=== PATIENT | male | born 1965 | race African-American/Black ===

== ENCOUNTER 2017-02-20 10:54 | Emergency (ER) | payer OTHER ==
[2017-02-20 11:04] VITALS: BP 136/79; PULSE 65; TEMP 97.9; BMI 24.9
[2017-02-20] MEDS ORDERED: IBUPROFEN 600 MG TABLET (FP) PO ONE ×2 (11:46→11:49)
--- NOTE | 2017-02-20 11:50 | PDOC ---
History of Present Illness - General Chief Complaint: Injury Stated Complaint: RT FOOT PAIN, SWOLLEN Time Seen by Provider: 02/20/17 11:15 History Source: Patient Exam Limitations: No Limitations - History of Present Illness Initial Comments: 02/20/17 11:56 My Chief Complaint: rt. first toe pain 02/20/17 11:59 History of Present Illness: Pt. is a 51-year-old male with no significant medical history here today complaining of pain to his first toe that radiates to the first metatarsal after banging it on a step at work yesterday. He reports that area is painful and is wearing a sandal presently. Patient did not take anything for pain. Patient has minimal swelling to his right metacarpal area and also has a bunion formation. He denies any numbness of the right first toe or foot. Occurred: reports: just prior to arrival Severity: Yes: moderate Lower Extremity Pain Location: right: 1st toe, other (1st mcp jt [id number]) Method of Injury: Yes: direct blow Modifying Factors: improves with: None Lower Ext. Injury Location - Specific Injury Location Foot: right foot pain (1st toe, rt. 1st mcp jt ) Extremity Pain Location - Extremity Pain Location Extremity Pain Locations: right: 1st toe, other (1st mcp jt ) Past History - Past Medical History Allergies/Adverse Reactions: Allergies Allergy/AdvReac Type Severity Reaction Status Date / Time No Known Allergies Allergy Verified 02/20/17 11:03 Home Medications: Ambulatory Orders NK [No Known Home Medication] 02/20/17 Other medical history: denies - Psycho/Social/Smoking Cessation Hx Suicidal Ideation: No Smoking Status: No Smoking History: Never smoked Number of Cigarettes Smoked Daily: 0 Information on smoking cessation initiated: No Hx Alcohol Use: No Drug/Substance Use Hx: No Substance Use Type: None Review of Systems - Review of Systems Able to Perform ROS?: Yes Constitutional: No: Symptoms Reported HEENTM: No: Symptoms Reported Respiratory: No: Symptoms reported Cardiac (ROS): No: Symptoms Reported ABD/GI: No: Symptoms Reported Musculoskeletal: Yes: Joint Pain (rt. 1st toe, rt. 1st mcp jt ). No: Joint Swelling Integumentary: No: Symptoms Reported Neurological: No: Symptoms reported *Physical Exam - Vital Signs Last Vital Signs Temp Pulse Resp BP Pulse Ox 97.9 F 65 18 136/79 65 L 02/20/17 11:01 02/20/17 11:01 02/20/17 11:01 02/20/17 11:01 02/20/17 11:01 - Physical Exam General Appearance: Yes: Appropriately Dressed Vascular Pulses: Dorsalis-Pedis (R): 4+ Extremity: positive: Normal Capillary Refill, Normal Inspection, Normal Range of Motion (rt. 1st toe and 1 st mcp jt ), Tender (rt. first toe, 1st mcp jt) Integumentary: positive: Normal Color Neurologic: positive: Alert, Normal Response, Respond to painful stimul (rt. foot and 1st toe). negative: Numbness, Sensory Deficit Medical Decision Making - Medical Decision Making 02/20/17 12:01 Pt. is a 51-year-old male with no significant medical history here today complaining of pain to his first toe that radiates to the first metatarsal after banging it on a step at work yesterday. He reports that area is painful and is wearing a sandal presently. Patient did not take anything for pain. Patient has minimal swelling to his right metacarpal area and also has a bunion formation. He denies any numbness of the right first toe or foot. Right 1st toe/mcp jt r/o fracture PLAN: Ibuprofen 600 mg po xray rt. 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 with degenerative changes at sole shoe given hard sole shoe given with crutches 02/20/17 12:25 02/20/17 23:01 02/20/17 23:01 *DC/Admit/Observation/Transfer Diagnosis at time of Disposition: Foot pain, right - Discharge Dispostion Disposition: HOME Condition at time of disposition: Stable - Referrals Referrals: Duran Barrios MD [Primary Care Provider] - - Patient Instructions Additional Instructions: Follow up with post doctoral fellow as soon as possible Use hard sole shoe and crutches Take ibuprofen as needed as directed by solar sales representative for pain Patient voiced understanding of discharge instructions and all questions were answered - Post Discharge Activity Work/School Note: Back to Work
== END 2017-02-20 12:32 | disposition home or self-care (01) ==
LOC: JERFT 10:54
DX: S99.821A Other specified injuries of right foot, initial encounter (principal); W22.8XXA Striking against or struck by other objects, initial encounter; Y93.89 Activity, other specified; Y92.89 Other specified places as the place of occurrence of the external cause; Y99.0 Civilian activity done for income or pay
CPT/HCPCS: 73630-TC-RT; 99281-25

== ENCOUNTER 2020-07-28 08:54 | Day surgery (SDC) | payer BC ==
[2020-07-26 12:08] VITALS: BMI 24.1
--- OUTSIDE RECORDS SUMMARY | 2020-07-28 09:08 | XMS ---
:1965 Author Organization [facility] Support Name Relationship Address Phone [facility], [facility] [employer] Unavailable [address] [place] [address] [facility] Unavailable [address] [place] [address] [employer]ODRIGUE[employer]OTHER [address] [place] [address] Re-disclosure Warning The records that you are about to access may contain information from federally- assisted alcohol or drug abuse programs. If such information is present, then the following federally mandated warning applies: This information has been disclosed to you from records protected by federal confidentiality rules (42 CFR part 2). The federal rules prohibit you from making any further disclosure of this information unless further disclosure is expressly permitted by the written consent of the person to whom it pertains or as otherwise permitted by 42 CFR part 2. A general authorization for the release of medical or other information is NOT sufficient for this purpose. The Federal rules restrict any use of the information to criminally investigate or prosecute any alcohol or drug abuse patient.The records that you are about to access may contain highly sensitive health information, the redisclosure of which is protected by Article 27-F of the [place] Public Health law. If you continue you may haveaccess to information: Regarding HIV / AIDS; Provided by facilities licensed or operated by the [facility] Office of Mental Health; or Provided by the [facility] Office for People With Developmental Disabilities. If such information is present, then the following [facility] mandated warning applies: This information has been disclosed to you from confidential records which are protected by state law. State law prohibits you from making any further disclosure of this information without the specific written consent of the person to whom it pertains, or as otherwise permitted by law. Any unauthorized further disclosure in violation of state law may result in a fine or nursing home sentence or both. A general authorization for the release of medical or other information is NOT sufficient authorization for further disclosure. Insurance Providers Payer name Policy type / Policy ID Covered Covered republican's Policy Plan Coverage type republican ID relationship to [employer] Information conley [employer] PPO [id number] SP [id number] Results ID Date Data Source [id number] 07/24/2020 02:35:00 PM EDT [facility] Name Value Range Interpretation Description Data Sup porting Code Source(s) Document(s ) SARS [facility] coronavirus 2 RNA This lab was ordered by [facility] and reported by [facility]. Procedure
--- NOTE | 2020-07-28 11:07 | OP ---
Operative Note - Note: Operative Date: 07/28/20 Pre-Operative Diagnosis: Right knee medial meniscus tear Operation: Right knee arthroscopy with partial medial meniscectomy Post-Operative Diagnosis: Same as Pre-op Surgeon: Luis Lee Fruit And Vegetable Packer: Jaida Brian Anesthesia: General Operative Report Dictated: Yes
[2020-07-28] MEDS ORDERED: PROPOFOL 20 ML ONE (11:09)
[2020-07-28] MEDS ORDERED: BUPIVACAINE HCL/PF 0.25% (2.5MG/ML) 10 ML VIAL ONE (11:13)
[2020-07-28] MEDS ORDERED: EPINEPHrine 1:1,000 1 MG/1 ML - 30ML VIAL (INJECTION) ONE (11:15)
[2020-07-28] MEDS ORDERED: MIDAZOLAM HCL 2 MG/2 ML SINGLE DOSE VIAL ONE (11:26)
[2020-07-28] MEDS ORDERED: ONDANSETRON 4 MG/2 ML VIAL ONE (11:35)
[2020-07-28] MEDS ORDERED: DEXAMETHASONE SOD PHOSPHATE 4 MG/1 ML VIAL ONE (11:35)
[2020-07-28] MEDS ORDERED: ceFAZolin SODIUM 1 GM VIAL ONE (11:42)
[2020-07-28] MEDS ORDERED: BUPIVACAINE HCL/PF 0.25% (2.5MG/ML) 10 ML VIAL IJ ONE (12:02)
[2020-07-28] MEDS ORDERED: ONDANSETRON 4 MG/2 ML VIAL IVPUSH PRN (12:22)
[2020-07-28] MEDS ORDERED: oxyCODONE HCL 5 MG TABLET PO PRN (12:22)
[2020-07-28] MEDS ORDERED: KETOROLAC TROMETHAMINE 15 MG/ML VIAL IVPUSH ONE (12:26)
[2020-07-28] MEDS ORDERED: LACTATED RINGERS SOLUTION 1,000 ML IV SCH (12:30)
[2020-07-28 12:34] VITALS: TEMP 97.6
[2020-07-28] MEDS ORDERED: KETOROLAC TROMETHAMINE 30 MG/1 ML VIAL ONE (12:44)
[2020-07-28] MEDS ORDERED: KETOROLAC TROMETHAMINE 30 MG/1 ML VIAL IVPUSH ONE (12:48)
[2020-07-28 13:54] VITALS: BP 135/75; PULSE 51
--- NOTE | 2020-07-29 17:01 | OP ---
DATE OF OPERATION: 07/28/2020 PREOPERATIVE DIAGNOSIS: Right knee medial and lateral meniscal tear. POSTOPERATIVE DIAGNOSIS: Right knee medial and lateral meniscal tear. PROCEDURE: Right knee arthroscopy with partial medial, partial lateral meniscectomy. SURGEON: Luis Scott MD. ANESTHESIA: General. POSTOPERATIVE CONDITION: Stable. COMPLICATIONS: None. ASSEMBLER HANDBAGS: Jaida Brian, physician social service assistant, whose skillful assistance was necessary for the safe and timely performance of this procedure. Ms. Brian was able to provide limb positioning, retraction, assistance driving the camera, and assistance in debridement of the soft tissue. INDICATION: This is a pleasant 55-year-old gentleman who suffers from knee pain. MRI demonstrated medial and lateral meniscal tears. Treatment options discussed including nonoperative versus operative management. Operative risks were reviewed in detail including bleeding, infection, neurovascular injury, need for further surgery, postoperative pain and stiffness, risk of osteoarthritis . We discussed medical risks such as heart attack, stroke, DVT, PE, and . I addressed the use of preoperative antibiotics and DVT prophylaxis. I addressed all the patient's questions and concerns. He voiced understanding and elected to proceed. DESCRIPTION OF PROCEDURE: The patient was brought to the operating room where general anesthetic was administered. The right lower extremity was then prepped and draped in the usual sterile fashion. A perioperative dose of antibiotics was given, and the usual timeout procedure was performed. The bony landmarks were then marked out. The lateral portal was established using an 11-blade. The arthroscope was passed to the knee. Examination of the patellofemoral joint demonstrated some partial thickness chondral fissuring along the more medial aspect of the patella. The trochlear demonstrated some mild . Passing the arthroscope into the notch demonstrated intact ACL and PCL. The arthroscope was then passed down into the medial compartment. Medial portal was established under spinal needle localization. Partial thickness chondral loss is noted along the medial femoral condyle, and superficial fraying is noted along the tibial surface. A complex tear was noted of the medial meniscus, mainly involving the posterior horn. Utilizing a combination of meniscal biters and the shaver, this was debrided down to a stable base. The arthroscope was now passed into the lateral compartment. Here, a complex tear was noted involving the posterior horn as well. The articular surface was noted to be frayed on both sides. There was a small depression in the posterior aspect of the plateau, high-grade partial thickness chondral loss. The knee was then irrigated out at this point to remove any debris. The wounds were then sutured using 3-0 nylon. Sterile dressings were placed. The patient was extubated and transferred to the recovery room in stable condition. LUIS SCOTT M.D. ANA [id number]
== END 2020-07-28 13:50 | disposition home or self-care (01) ==
LOC: FASU 08:54
PROVIDERS: ATTEND Orthopaedic Surgery Sports Medicine
PROC: 0SBC4ZZ Excision of Right Knee Joint, Percutaneous Endoscopic Approach (ICD-10-PCS; 2020-07-28)
PROC: 0SBC4ZZ Excision of Right Knee Joint, Percutaneous Endoscopic Approach (ICD-10-PCS; principal; 2020-07-28 11:48)
DX: S83.241A Other tear of medial meniscus, current injury, right knee, initial encounter (principal); S83.281A Other tear of lateral meniscus, current injury, right knee, initial encounter; X58.XXXA Exposure to other specified factors, initial encounter; Y93.9 Activity, unspecified; Y92.9 Unspecified place or not applicable
CPT/HCPCS: 94760

== ENCOUNTER 2020-11-30 12:21 | Emergency (ER) | payer BC ==
[2020-11-30 12:52] VITALS: BMI 24.3
[2020-11-30] MEDS ORDERED: CASIRIVIMAB (REGN10933) 1,200 MG, IMDEVIMAB (REGN10987) 1,200 MG in SODIUM CHLORIDE 230 ML IVPB ONE (13:58)
[2020-11-30 14:55] LABS: HEMATOCRIT 47.1 % (35.4-49); HEMOGLOBIN 16.1 GM/dL (11.7-16.9); MCH 29.2 pg (25.7-33.7); MCHC 34.3 g/dl (32.0-35.9); MEAN CELL VOLUME 85.1 fl (80-96); MEAN PLT VOLUME 9.5 fl (7.5-11.1); PLATELET COUNT 204 K/MM3 (134-434); RBC 5.53 M/mm3 (4.00-5.60); WHITE BLOOD COUNT 3.4 K/mm3 (4.0-10.0)
[2020-11-30 15:13] LABS: POTASSIUM 4.3 mmol/L (3.5-5.1)
[2020-11-30 15:14] LABS: CALCIUM 9.3 mg/dL (8.5-10.1)
[2020-11-30 15:15] LABS: BLOOD UREA NITROGEN 15.2 mg/dL (7-18)
[2020-11-30 15:18] LABS: CREATININE 1.2 mg/dL (0.55-1.3)
[2020-11-30 16:40] VITALS: TEMP 98.3
[2020-11-30 17:29] VITALS: BP 123/63; PULSE 67
== END 2020-11-30 17:31 | disposition home or self-care (01) ==
LOC: JCOVINFU 12:21 → JER 12:21 → JCOVINFU 17:31
DX: Z11.52 Encounter for screening for COVID-19 (principal)
CPT/HCPCS: 36415; 71045-TC-FY; 80048; 85027; 99284-25; M0243; Q0243

== ENCOUNTER 2020-12-08 10:30 | Emergency (ER) | payer BC | END 2020-12-08 11:19 | disposition home or self-care (01) | LOC: JVIRT 10:30 | DX: U07.1 COVID-19 (principal) | CPT/HCPCS: C9803; G2012-GT; U0003 ==

== ENCOUNTER 2023-02-18 04:30 | Day surgery (SDC) | payer BC ==
[2023-02-14 11:03] VITALS: BMI 24.8
[2023-02-18 12:09] VITALS: RESP 19
[2023-02-18 12:15] VITALS: BP 121/75; PULSE 51; TEMP 98
== END 2023-02-18 12:20 | disposition home or self-care (01) ==
LOC: JASU-ENDO 04:30
PROVIDERS: ATTEND Internal Medicine Gastroenterology
PROC: 0D5N8ZZ Destruction of Sigmoid Colon, Via Natural or Artificial Opening Endoscopic (ICD-10-PCS; 2023-02-18)
PROC: 3E0H8GC Introduction of Other Therapeutic Substance into Lower GI, Via Natural or Artificial Opening Endoscopic (ICD-10-PCS; 2023-02-18)
PROC: 0D5C8ZZ Destruction of Ileocecal Valve, Via Natural or Artificial Opening Endoscopic (ICD-10-PCS; principal; 2023-02-18 11:00)
DX: Z12.11 Encounter for screening for malignant neoplasm of colon (principal); D12.5 Benign neoplasm of sigmoid colon; D12.6 Benign neoplasm of colon, unspecified
CPT/HCPCS: 88305-TC

== ENCOUNTER 2024-05-05 04:29 | Day surgery (SDC) | payer BC ==
[2024-04-27 14:28] VITALS: BMI 25.0
[2024-05-05 08:47] VITALS: TEMP 97.9
[2024-05-05 09:19] VITALS: RESP 12
[2024-05-05 09:21] VITALS: BP 121/79; PULSE 55
== END 2024-05-05 09:35 | disposition home or self-care (01) ==
LOC: JASU-ENDO 04:29
PROVIDERS: ATTEND Internal Medicine Gastroenterology
PROC: 0DBL8ZX Excision of Transverse Colon, Via Natural or Artificial Opening Endoscopic, Diagnostic (ICD-10-PCS; 2024-05-05)
PROC: 0DBH8ZX Excision of Cecum, Via Natural or Artificial Opening Endoscopic, Diagnostic (ICD-10-PCS; principal; 2024-05-05 08:00)
DX: Z12.11 Encounter for screening for malignant neoplasm of colon (principal); D12.0 Benign neoplasm of cecum; D12.3 Benign neoplasm of transverse colon; K64.8 Other hemorrhoids; Z86.010 Personal history of colon polyps
CPT/HCPCS: 88305-TC